=== PATIENT | female | born 1950 | race Caucasian/White ===

== ENCOUNTER 2017-05-20 22:37 | Emergency (ER) | payer BC ==
[~2017-05-20] VITALS: Ht 167.6 cm; Wt 115.9 kg
[~2017-05-20 22:37] MED LIST: ASPI81TA52 PO; ATEN50TA8 PO; ATOR20TA PO; CARI250T PO; CYCL10TA9; DULO-31 PO; DULO20CA50 PO; ENOX80SY7 SUBCUT; FURO40TA4 PO; LEVO75TA7 PO; METF500T7 PO; OXYC10TA86 PO; POTA20LI PO
[2017-05-20] MEDS ORDERED: aspirin 81mg tab.chew PO ONE (22:50)
[2017-05-20] MEDS ORDERED: nitroGLYCERIN 0.4mg SUBLingual tab SL PRN (22:50)
[2017-05-20 23:07] LABS: BASOPHILS # (AUTO) 0.1 X10'3 (0-0.2); BASOPHILS % (AUTO) 0.7 % (0-1); EOSINOPHILS # (AUTO) 0.7 X10'3 (0-0.9); EOSINOPHILS % (AUTO) 8.8 % (0-6); HEMATOCRIT 41.2 % (35.0-45.0); LYMPHOCYTES # (AUTO) 2.5 X10'3 (1.1-4.8); LYMPHOCYTES % (AUTO) 32.6 % (21-51); MEAN CORPUSCULAR HEMOGLOBIN 26.4 PG (27.0-31.0); MEAN CORPUSCULAR HGB CONC 31.6 % (33.0-36.5); MEAN CORPUSCULAR VOLUME 83.5 FL (78-98); MEAN PLATELET VOLUME 9.3 FL (7.4-10.4); MONOCYTES # (AUTO) 0.7 X10'3 (0-0.9); MONOCYTES % (AUTO) 9.5 % (2-12); NEUTROPHILS # (AUTO) 3.7 X10'3 (1.8-7.7); NEUTROPHILS % (AUTO) 48.4 % (42-75); PLATELET COUNT 249 X10'3 (140-440); RED BLOOD COUNT 4.93 X10'6 (4.20-5.60); RED CELL DISTRIBUTION WIDTH 15.8 % (11.5-14.5); WHITE BLOOD COUNT 7.6 X10'3 (4.5-11.0)
[2017-05-20 23:18] LABS: PARTIAL THROMBOPLASTIN TIME 27 SECONDS (22-32); PROTHROMBIN TIME 10.7 SECONDS (9.0-12.0)
[2017-05-20 23:28] LABS: ALANINE AMINOTRANSFERASE 29 U/L (12-78); ALBUMIN 3.7 G/DL (3.4-5.0); ALBUMIN/GLOBULIN RATIO 0.9 (1.1-1.5); ALKALINE PHOSPHATASE 70 IU/L (46-116); ANION GAP 8 (8-16); ASPARTATE AMINO TRANSFERASE 23 U/L (10-37); BILIRUBIN,TOTAL 0.5 MG/DL (0.1-1.0); BLOOD UREA NITROGEN 14 MG/DL (7-18); BUN/CREATININE RATIO 17.1 (6.6-38.0); CALCIUM 9.4 MG/DL (8.5-10.1); CHLORIDE 102 MMOL/L (99-107); CREATININE 0.82 MG/DL (0.40-0.90); GLUCOSE 102 MG/DL (70-104); MAGNESIUM 1.8 MG/DL (1.5-2.4); POTASSIUM 3.6 MMOL/L (3.5-5.1); SODIUM 141 MMOL/L (135-145); TOTAL CARBON DIOXIDE 30.7 MMOL/L (24-32); TOTAL PROTEIN 7.8 G/DL (6.4-8.2); eGFR 70 ML/MIN
[2017-05-20 23:54] LABS: D-DIMER 0.34 MG/L FEU (0-0.50)
[2017-05-21] MEDS ORDERED: acetaminophen 325mg tablet PO ONE (00:20)
[2017-05-21] MEDS ORDERED: ondansetron 4mg rapidly disintigrating tab PO ONE (00:20)
[2017-05-21 02:47] VITALS: BP 112/68
== END 2017-05-21 02:52 | disposition home or self-care (01) ==
LOC: ER 22:38
DX: R07.89 Other chest pain (principal); I48.91 Unspecified atrial fibrillation; E11.9 Type 2 diabetes mellitus without complications; Z98.890 Other specified postprocedural states; Z79.82 Long term (current) use of aspirin; Z79.899 Other long term (current) drug therapy
CPT/HCPCS: 36415; 71045; 80053; 83735; 83880; 84484; 85025; 85379; 85610; 85730; 93005; 99285

== ENCOUNTER 2018-07-06 05:11 | Inpatient (IN) | payer BC, MEDICARE | END 2018-07-10 15:01 | disposition home or self-care (01) | LOC: PAS IN 05:11 → ORTHO 4S 11:15 | DX: M17.11 Unilateral primary osteoarthritis, right knee (principal) ==

== ENCOUNTER 2018-10-19 08:31 | Inpatient (IN) | payer BC, MEDICARE ==
[2018-10-08 11:07] LABS: CLARITY,URINE CLOUDY (Clear); COLOR,URINE YELLOW (Yellow); GLUCOSE, URINE NEGATIVE (Neg); KETONES,URINE NEGATIVE (Neg); LEUKOCYTE ESTERASE ,URINE NEGATIVE (Neg); NITRITES, URINE NEGATIVE (Neg); OCCULT BLOOD,URINE NEGATIVE (Neg); PROTEIN,URINE NEGATIVE (Neg); UROBILINOGEN,URINE 0.2 E.U/dL (0.2-1.0)
[2018-10-08 11:11] LABS: UA COLLECTION TYPE CLN CATCH MIDSTREAM
[2018-10-08 11:12] LABS: BACTERIA,URINE FEW /HPF (Neg); RBC,URINE 0-2 /HPF (0-2); SQUAMOUS EPITHELIAL CELL,UR FEW /LPF (FEW); WBC,URINE 0-4 /HPF (0-4)
[2018-10-08 11:13] LABS: AMORPHOUS PHOSPHATES 2+
[2018-10-08 11:14] LABS: BASOPHILS % (AUTO) 0.8 % (0-1); EOSINOPHILS # (AUTO) 0.2 X10'3 (0-0.9); EOSINOPHILS % (AUTO) 3.3 % (0-6); LYMPHOCYTES # (AUTO) 1.7 X10'3 (1.1-4.8); MEAN CORPUSCULAR HEMOGLOBIN 25.6 PG (27.0-31.0); MEAN CORPUSCULAR HGB CONC 31.3 g/dL (33.0-36.5); MEAN CORPUSCULAR VOLUME 81.9 FL (78-98); MONOCYTES # (AUTO) 0.6 X10'3 (0-0.9); MONOCYTES % (AUTO) 10.1 % (2-12); NEUTROPHILS # (AUTO) 3.4 X10'3 (1.8-7.7); NEUTROPHILS % (AUTO) 57.8 % (42-75); PRE OP HEMATOCRIT 37.7 % (35.0-45.0); PRE OP HEMOGLOBIN 11.8 g/dL (12.0-16.0); PRE OP PLATELET COUNT 255 X10'3 (140-440); RED BLOOD COUNT 4.61 X10'6 (4.20-5.60); RED CELL DISTRIBUTION WIDTH 18.4 % (11.5-14.5)
[2018-10-08 11:20] LABS: HEMOGLOBIN A1C 6.1 % (4.5-6.2); PRE OP PROTIME 10.3 SECONDS (9.0-12.0)
[2018-10-08 11:30] LABS: ALBUMIN 3.7 G/DL (3.4-5.0); ALBUMIN/GLOBULIN RATIO 0.9 (1.1-1.5); ALKALINE PHOSPHATASE 84 IU/L (46-116); BLOOD UREA NITROGEN 13 MG/DL (7-18); CALCIUM 9.9 MG/DL (8.5-10.1); CHLORIDE 104 MMOL/L (99-107); CREATININE 0.62 MG/DL (0.40-0.90); PRE OP ALT 24 U/L (30-65); PRE OP ANION GAP 3 (8-16); PRE OP AST 14 U/L (10-37); PRE OP BILIRUB, TOTAL 0.3 MG/DL (0.0-1.0); PRE OP GLUCOSE 98 MG/DL (70-104); PRE OP POTASSIUM 4.1 MMOL/L (3.4-5.1); PRE OP SODIUM 142 MMOL/L (135-145); TOTAL CARBON DIOXIDE 34.7 MMOL/L (24-32); TOTAL PROTEIN 7.6 G/DL (6.4-8.2); eGFR > 90 ML/MIN
[~2018-10-19] VITALS: Ht 167.6 cm; Wt 102.5 kg
[2018-10-19] VITALS (20 sets, daily range): BP systolic 90–151; BP diastolic 50–80
[~2018-10-19 08:31] MED LIST changes: +ALBU8.5H8 IH; +APIX5TAB3 PO; +ASPI-611 PO; -ASPI81TA52 PO; -ATEN50TA8 PO; -ATOR20TA PO; +ATOR20TA66 PO; -CARI250T PO; +CYAN10006 IM; -CYCL10TA9; -DULO20CA50 PO; -ENOX80SY7 SUBCUT; +EXEN2AUT SQ; +EXEN2PEN; +METF500T20 PO; -METF500T7 PO; +MOME13HF INH; +MULT-969 PO; -OXYC10TA86 PO; -POTA20LI PO; +SOTA80TA73 PO; +VALS80TA2 PO; +VITA1TAB20 PO
[2018-10-19] MEDS ORDERED: gabapentin 300mg capsule PO ONE (08:45)
[2018-10-19] MEDS ORDERED: DOCUMENT DATE & TIME OF BETA-BLOCKER PO ONE (08:45)
[2018-10-19] MEDS ORDERED: albuterol 2.5 MG/3 ML nebule NEB ONE (08:45)
[2018-10-19] MEDS ORDERED: ringers solution, lacted 1,000 ML IV SCH ×2 (08:45→11:58)
[2018-10-19] MEDS ORDERED: vancomycin inj 1,500 MG in normal saline 300ml IV soln IV ONE (08:45)
[2018-10-19] MEDS ORDERED: oxyCODONE SR 10mg (sust. release) tab PO ONE (08:45)
[2018-10-19] MEDS ORDERED: famotidine 20mg tablet PO ONE (08:45)
[2018-10-19] MEDS ORDERED: cefazolin/dext.iso 2gm/100 ML IV ONE (08:45)
[2018-10-19] MEDS ORDERED: celeCOXIB 100mg capsule PO ONE (08:45)
[2018-10-19] MEDS ORDERED: tranexamic acid inj. 1,000 MG in normal saline 100 ML IV ONE (08:45)
[2018-10-19] MEDS ORDERED: acetaminophen 325mg tablet PO ONE (08:45)
[2018-10-19] MEDS ORDERED: glycopyrrolate 0.2mg/ml inj ONE (10:20)
[2018-10-19] MEDS ORDERED: ePHEDrine 50MG/ML INJ. ONE (10:20)
[2018-10-19] MEDS ORDERED: ondansetron/PF 4mg/2ml inj ONE (10:20)
[2018-10-19] MEDS ORDERED: neostigmine methylsulfate 1 MG/ML 10ml vial ONE (10:20)
[2018-10-19] MEDS ORDERED: sevoflurane 250ml liquid IH ONE (10:20)
[2018-10-19] MEDS ORDERED: dexamethasone sod phosphate 10mg/ml inj ONE (10:20)
[2018-10-19] MEDS ORDERED: fentaNYL/PF 50MCG/1 ML 2ML syringe ONE ×2 (10:26→11:06)
[2018-10-19] MEDS ORDERED: MIDAZolam 5mg/5ml vial ONE (10:27)
[2018-10-19] MEDS ORDERED: ROPIVAcaine 0.5% (5mg/ml) 30ml vial ONE (10:27)
[2018-10-19] MEDS ORDERED: proCHLORperazine 10 MG/2 ml inj IV PRN (12:00)
[2018-10-19] MEDS ORDERED: morphine 4 MG/ML inj SYRINge IV PRN ×2 (12:00)
[2018-10-19] MEDS ORDERED: ondansetron/PF 4mg/2ml inj IV PRN ×2 (12:00→13:00)
[2018-10-19] MEDS ORDERED: meperidine/PF 25mg/ml syringe IV PRN ×3 (12:00)
[2018-10-19] MEDS ORDERED: ceFAZolin 1000mg inj ONE (12:13)
[2018-10-19] MEDS ORDERED: propofol inj 20 ML IV ONE (12:13)
[2018-10-19] MEDS ORDERED: acetaminophen 1,000mg/100ml IV 100 ML IV ONE (12:13)
[2018-10-19] MEDS ORDERED: rocuronium 10mg/ml inj IV ONE (12:13)
[2018-10-19] MEDS ORDERED: LIDOcaine 2% (20mg/ml) 5ml vial ONE (12:13)
[2018-10-19] MEDS ORDERED: furosemide 40mg/4ml inj ONE (12:36)
[2018-10-19] MEDS ORDERED: non-formulary drug (Albuterol Sulfate (Proair Hfa) 2 PUFFS) IH PRN (12:55)
[2018-10-19] MEDS ORDERED: HYDROmorphone 1 mg/ml syringe IV PRN (13:00)
[2018-10-19] MEDS ORDERED: magnesium hydroxide 30ml (MOM) UD suspension PO PRN (13:00)
[2018-10-19] MEDS ORDERED: acetaminophen 325mg tablet PO PRN (13:00)
[2018-10-19] MEDS ORDERED: glucagon, human recombinant 1mg kit SUBCUT PRN (13:00)
[2018-10-19] MEDS ORDERED: dextrose 50%-water 50ml dispensing syringe IV PRN ×2 (13:00)
[2018-10-19] MEDS ORDERED: insulin Lispro (HumaLOG) vial - multi-dose SQ SCH (13:00)
[2018-10-19] MEDS ORDERED: dextrose ORAL solution 15 GM/59 ML bottle PO PRN ×2 (13:00)
[2018-10-19] MEDS ORDERED: diphenhydrAMINE 25mg capsule PO PRN ×2 (13:00)
[2018-10-19] MEDS ORDERED: MESSAGE TO PHARMACY PO ONE (13:00)
[2018-10-19] MEDS ORDERED: oxyCODONE/APAP 10/325mg tablet PO PRN (13:00)
[2018-10-19] MEDS ORDERED: bisacodyl 10mg suppository rectal RC PRN (13:00)
[2018-10-19] MEDS ORDERED: meperidine/PF 50mg/ml syringe ONE (13:05)
[2018-10-19] MEDS ORDERED: albuterol 2.5 MG/3 ML nebule NEB PRN (13:20)
--- NOTE | 2018-10-19 13:34 | NUR ---
ARRIVED IN PACU VIA BED FROM OR WITH DR DONOVAN IN ATTENDANCE. REPORT RECEIVED. VS STABLE. PT SLEEPY BUT AROUSES EASILY
--- NOTE | 2018-10-19 14:04 | NUR ---
PT IN A.FIB DR DONOVAN NOTIFIED. NO RX. VS STABLE
--- NOTE | 2018-10-19 14:34 | NUR ---
CONTINUES IN AFIB VS STABLE. STARTING TO C/O OF MILD PAIN.
--- NOTE | 2018-10-19 15:04 | NUR ---
COMFORTABLE. TO FLOOR ON TELE.
[2018-10-19] MEDS: metFORMIN 500mg tablet PO SCH (16:03)
[2018-10-19] MEDS: gabapentin 300mg capsule PO SCH ×2 (16:03→20:39)
[2018-10-19] MEDS: oxyCODONE/APAP 10/325mg tablet PO PRN ×2 (16:04→20:38)
[2018-10-19] MEDS: potassium cl 20mEq in 1/2 NS 1,000 ML IV SCH (16:05)
[2018-10-19] MEDS: ceFAZolin 1GM/D5W- ADD-VANTAGE 50 ML IV SCH (16:06)
--- NOTE | 2018-10-19 19:36 | NUR ---
non-admin the emar 0845 svn. dont know if patient actually received the treatment or not. i will start the Q6 svn orders at 2100
[2018-10-19] MEDS ORDERED: vancomycin/NS 1 GM ADD-VANTAGE 250 ML IV SCH (20:00)
[2018-10-19] MEDS: sotalol 80mg tablet PO SCH (20:00)
[2018-10-19] MEDS ORDERED: non-formulary drug (Mometasone/Formoterol (Dulera 200 Mcg/5 Mcg Inhaler) 2 PUFFS) INH SCH (20:00)
[2018-10-19] MEDS: ascorbic acid 500mg tablet PO SCH (20:39)
[2018-10-19] MEDS: sennosides 8.6mg tablet PO SCH (20:39)
[2018-10-19] MEDS: budesonide 0.5mg/2ml UD nebule IH SCH (20:52)
[2018-10-19] MEDS: albuterol 2.5 MG/3 ML nebule NEB SCH (20:52)
[2018-10-19] MEDS: insulin glargine (Lantus) pen - multi-dose SQ SCH (21:00)
[2018-10-20] MEDS: potassium cl 20mEq in 1/2 NS 1,000 ML IV SCH ×4 (00:57→20:57)
[2018-10-20] MEDS: ceFAZolin 1GM/D5W- ADD-VANTAGE 50 ML IV SCH (00:57)
[2018-10-20 02:00] VITALS: BP 110/51
[2018-10-20] MEDS: albuterol 2.5 MG/3 ML nebule NEB SCH ×4 (02:43→19:40)
--- NOTE | 2018-10-20 02:44 | NUR ---
pt refused 0300 svn for sleep
[2018-10-20] MEDS: oxyCODONE/APAP 10/325mg tablet PO PRN ×5 (04:38→21:07)
[2018-10-20 06:00] VITALS: BP 106/44
--- NOTE | 2018-10-20 06:07 | NUR ---
Problems reprioritized. Patient report given, questions answered & plan of care reviewed with JILLIAN CORTEZ.
--- NOTE | 2018-10-20 06:23 | NUR ---
Patient in room ORTHO 4017. I have received report from JILLIAN Hansen and had the opportunity to ask questions and assume patient care.
[2018-10-20 06:50] LABS: BASOPHILS % (AUTO) 0.3 % (0-1); EOSINOPHILS # (AUTO) 0.1 X10'3 (0-0.9); HEMATOCRIT 28.1 % (35.0-45.0); HEMOGLOBIN 8.8 g/dl (12.0-16.0); LYMPHOCYTES # (AUTO) 1.6 X10'3 (1.1-4.8); LYMPHOCYTES % (AUTO) 25.3 % (21-51); MEAN CORPUSCULAR HEMOGLOBIN 26.1 PG (27.0-31.0); MEAN CORPUSCULAR HGB CONC 31.4 g/dL (33.0-36.5); MEAN CORPUSCULAR VOLUME 83.1 FL (78-98); MEAN PLATELET VOLUME 9.1 FL (7.4-10.4); MONOCYTES # (AUTO) 0.7 X10'3 (0-0.9); MONOCYTES % (AUTO) 10.3 % (2-12); NEUTROPHILS % (AUTO) 62.1 % (42-75); PLATELET COUNT 207 X10'3 (140-440); RED BLOOD COUNT 3.39 X10'6 (4.20-5.60); RED CELL DISTRIBUTION WIDTH 19.3 % (11.5-14.5); WHITE BLOOD COUNT 6.4 X10'3 (4.5-11.0)
[2018-10-20 06:57] LABS: ANION GAP 5 (8-16); CHLORIDE 102 MMOL/L (99-107); POTASSIUM 4.4 MMOL/L (3.5-5.1); SODIUM 136 MMOL/L (135-145); TOTAL CARBON DIOXIDE 28.7 MMOL/L (24-32)
[2018-10-20] MEDS: atorvastatin 20mg tablet PO SCH (07:41)
[2018-10-20] MEDS: ascorbic acid 500mg tablet PO SCH ×2 (07:41→19:59)
[2018-10-20] MEDS: losartan 50mg tablet PO SCH (07:41)
[2018-10-20] MEDS: levoTHYROXINE 75mcg tablet PO SCH (07:41)
[2018-10-20] MEDS: duloxetine 30mg CAPSULE.DR PO SCH (07:41)
[2018-10-20] MEDS: furosemide 40mg tablet PO SCH (07:41)
[2018-10-20] MEDS: multivitamins, therapeutics tablet PO SCH (07:41)
[2018-10-20] MEDS: gabapentin 300mg capsule PO SCH ×3 (07:41→19:59)
[2018-10-20] MEDS: sotalol 80mg tablet PO SCH ×2 (07:41→19:58)
[2018-10-20] MEDS: metFORMIN 500mg tablet PO SCH ×3 (07:42→16:42)
[2018-10-20] MEDS ORDERED: non-formulary drug (Valsartan* (Diovan*) 1 TAB) PO SCH (08:00)
[2018-10-20] MEDS ORDERED: METFORMIN HCL 1500 MG PO SCH (08:00)
[2018-10-20] MEDS: budesonide 0.5mg/2ml UD nebule IH SCH ×2 (08:58→19:40)
[2018-10-20 10:00] VITALS: BP 112/56
[2018-10-20] MEDS ORDERED: warfarin 10mg tablet PO ONE (10:00)
[2018-10-20] MEDS ORDERED: HYDROmorphone inj. 0.5 MG/0.5 ML DISP.SYRIN IV PRN (10:45)
[2018-10-20 14:00] VITALS: BP 110/43
--- NOTE | 2018-10-20 14:05 | NUR ---
DM/Joint replacement consults: A1C <7 and not appropriate for ed at this time. Pt seen by RD for written/verbal high protein ed. RD reviewed high protein needs for wound healing, immune strength, high protein foods, and protein supplementation options. RD contact information provided in case of further questions. Pt hx michelle-en-y; RD encouraged pt to take bariatric MVI. Pt agrees to chocolate ensure high protein TIDWM; MD notified. Pt aware pending MD verification prior to sending w/ meals. Addendum: 10/20/18 at [address] Amended: Links added.
[2018-10-20 16:08] LABS: HYPOCHROMASIA 1+; PLATELET ESTIMATE NORMAL
[2018-10-20 16:09] LABS: ANISOCYTOSIS 2+; POLYCHROMASIA FEW
[2018-10-20 18:00] VITALS: BP 116/39
--- NOTE | 2018-10-20 18:30 | NUR ---
Patient in room ORTHO 4017. I have received report from JILLIAN CORTEZ and had the opportunity to ask questions and assume patient care.
[2018-10-20] MEDS: sennosides 8.6mg tablet PO SCH (19:58)
[2018-10-20] MEDS: insulin glargine (Lantus) pen - multi-dose SQ SCH (21:00)
[2018-10-20 22:00] VITALS: BP 113/65
[2018-10-21] MEDS: oxyCODONE/APAP 10/325mg tablet PO PRN ×5 (02:15→20:58)
[2018-10-21] MEDS: albuterol 2.5 MG/3 ML nebule NEB SCH ×4 (03:42→20:14)
[2018-10-21] MEDS: potassium cl 20mEq in 1/2 NS 1,000 ML IV SCH (04:49)
[2018-10-21 06:00] VITALS: BP 92/50
--- NOTE | 2018-10-21 06:06 | NUR ---
Problems reprioritized. Patient report given, questions answered & plan of care reviewed with JILLIAN VITALE.
--- NOTE | 2018-10-21 06:11 | NUR ---
received report from isela worthington
[2018-10-21] MEDS: furosemide 40mg tablet PO SCH (07:13)
[2018-10-21] MEDS: losartan 50mg tablet PO SCH (07:13)
[2018-10-21 07:16] LABS: BASOPHILS % (AUTO) 0.2 % (0-1); EOSINOPHILS # (AUTO) 0.2 X10'3 (0-0.9); EOSINOPHILS % (AUTO) 3.3 % (0-6); HEMATOCRIT 25.9 % (35.0-45.0); HEMOGLOBIN 8.3 g/dl (12.0-16.0); LYMPHOCYTES # (AUTO) 1.4 X10'3 (1.1-4.8); LYMPHOCYTES % (AUTO) 19.6 % (21-51); MEAN CORPUSCULAR HEMOGLOBIN 26.8 PG (27.0-31.0); MEAN CORPUSCULAR HGB CONC 32.1 g/dL (33.0-36.5); MEAN CORPUSCULAR VOLUME 83.4 FL (78-98); MONOCYTES # (AUTO) 0.7 X10'3 (0-0.9); MONOCYTES % (AUTO) 10.3 % (2-12); NEUTROPHILS # (AUTO) 4.9 X10'3 (1.8-7.7); NEUTROPHILS % (AUTO) 66.6 % (42-75); PLATELET COUNT 158 X10'3 (140-440); RED BLOOD COUNT 3.11 X10'6 (4.20-5.60); WHITE BLOOD COUNT 7.3 X10'3 (4.5-11.0)
[2018-10-21] MEDS: metFORMIN 500mg tablet PO SCH ×3 (07:22→17:05)
[2018-10-21] MEDS: duloxetine 30mg CAPSULE.DR PO SCH (07:22)
[2018-10-21] MEDS: sotalol 80mg tablet PO SCH ×2 (07:23→20:58)
[2018-10-21] MEDS: atorvastatin 20mg tablet PO SCH (07:24)
[2018-10-21] MEDS: levoTHYROXINE 75mcg tablet PO SCH (07:24)
[2018-10-21] MEDS: multivitamins, therapeutics tablet PO SCH (07:24)
[2018-10-21] MEDS: gabapentin 300mg capsule PO SCH ×3 (07:24→20:55)
[2018-10-21] MEDS: ascorbic acid 500mg tablet PO SCH ×2 (07:24→20:55)
[2018-10-21] MEDS: lactose-reduced food (Ensure High Protein) 237ml bottle PO SCH ×4 (08:00→18:00)
[2018-10-21 08:53] LABS: ANISOCYTOSIS 2+; HYPOCHROMASIA 2+; PLATELET ESTIMATE NORMAL; POLYCHROMASIA FEW
[2018-10-21 10:00] VITALS: BP 106/59
[2018-10-21] MEDS ORDERED: warfarin 3mg tablet PO ONE (10:00)
[2018-10-21] MEDS: budesonide 0.5mg/2ml UD nebule IH SCH ×2 (10:26→20:14)
[2018-10-21] MEDS ORDERED: acetaminophen 325mg tablet PO PRN (13:00)
--- NOTE | 2018-10-21 18:26 | NUR ---
GAVE REPORT TO JILLIAN AWAN
[2018-10-21] MEDS: sennosides 8.6mg tablet PO SCH (20:54)
[2018-10-21] MEDS: insulin glargine (Lantus) pen - multi-dose SQ SCH (21:00)
[2018-10-21 21:03] VITALS: BP 118/67
[2018-10-22] MEDS: albuterol 2.5 MG/3 ML nebule NEB SCH ×2 (02:52→08:23)
[2018-10-22] MEDS: oxyCODONE/APAP 10/325mg tablet PO PRN ×2 (04:49→10:25)
[2018-10-22 05:56] LABS: BASOPHILS % (AUTO) 0.3 % (0-1); EOSINOPHILS # (AUTO) 0.3 X10'3 (0-0.9); EOSINOPHILS % (AUTO) 4.3 % (0-6); HEMATOCRIT 27.5 % (35.0-45.0); HEMOGLOBIN 8.8 g/dl (12.0-16.0); LYMPHOCYTES # (AUTO) 1.9 X10'3 (1.1-4.8); MEAN CORPUSCULAR HEMOGLOBIN 26.5 PG (27.0-31.0); MEAN CORPUSCULAR HGB CONC 31.9 g/dL (33.0-36.5); MEAN PLATELET VOLUME 8.9 FL (7.4-10.4); MONOCYTES # (AUTO) 0.7 X10'3 (0-0.9); MONOCYTES % (AUTO) 9.7 % (2-12); NEUTROPHILS # (AUTO) 4.5 X10'3 (1.8-7.7); NEUTROPHILS % (AUTO) 60.7 % (42-75); PLATELET COUNT 205 X10'3 (140-440); RED BLOOD COUNT 3.31 X10'6 (4.20-5.60); RED CELL DISTRIBUTION WIDTH 19.3 % (11.5-14.5); WHITE BLOOD COUNT 7.5 X10'3 (4.5-11.0)
[2018-10-22 06:00] VITALS: BP 103/56
--- NOTE | 2018-10-22 06:05 | NUR ---
Patient in room ORTHO 4017. I have received report from Geeta and had the opportunity to ask questions and assume patient care.
--- NOTE | 2018-10-22 06:05 | NUR ---
Problems reprioritized. Patient report given, questions answered & plan of care reviewed with JILLIAN GUERRERO.
[2018-10-22] MEDS ORDERED: PER10325T PO (07:49)
[2018-10-22] MEDS: lactose-reduced food (Ensure High Protein) 237ml bottle PO SCH (08:00)
[2018-10-22] MEDS: metFORMIN 500mg tablet PO SCH (08:08)
[2018-10-22] MEDS: sotalol 80mg tablet PO SCH (08:08)
[2018-10-22] MEDS: losartan 50mg tablet PO SCH (08:09)
[2018-10-22] MEDS: atorvastatin 20mg tablet PO SCH (08:10)
[2018-10-22] MEDS: furosemide 40mg tablet PO SCH (08:10)
[2018-10-22] MEDS: duloxetine 30mg CAPSULE.DR PO SCH (08:10)
[2018-10-22] MEDS: gabapentin 300mg capsule PO SCH (08:11)
[2018-10-22] MEDS: multivitamins, therapeutics tablet PO SCH (08:11)
[2018-10-22] MEDS: levoTHYROXINE 75mcg tablet PO SCH (08:11)
[2018-10-22] MEDS: ascorbic acid 500mg tablet PO SCH (08:11)
[2018-10-22] MEDS: budesonide 0.5mg/2ml UD nebule IH SCH (08:23)
[2018-10-22 09:59] VITALS: BP 113/47
[2018-10-22] MEDS ORDERED: warfarin 7.5mg tablet PO ONE (10:00)
--- NOTE | 2018-10-22 10:11 | NUR ---
Called [facility], spoke with Shannan who took report.
[2018-10-22 10:54] LABS: ANISOCYTOSIS 2+; PLATELET ESTIMATE NORMAL; POLYCHROMASIA 1+
--- NOTE | 2018-10-22 10:56 | NUR ---
Pt was transported via [facility] personnel to [facility]. Pt is alert, oriented and in good spirits. Pt does not have any c/o pain or discomfort at this time. All of pt's belongings were returned to pt.
== END 2018-10-22 10:50 | DRG 470 ==
LOC: PAS IN 08:31 → EDSTATUS 10:45 → ORTHO 4S 15:15
PROVIDERS: ADMIT Specialist; ATTEND Specialist
PROC: 0MNP0ZZ Release Left Knee Bursa and Ligament, Open Approach (ICD-10-PCS; 2018-10-19)
PROC: 3E0T3BZ Introduction of Anesthetic Agent into Peripheral Nerves and Plexi, Percutaneous Approach (ICD-10-PCS; 2018-10-19)
PROC: 0SRD0J9 Replacement of Left Knee Joint with Synthetic Substitute, Cemented, Open Approach (ICD-10-PCS; principal; 2018-10-19 10:20)
DX: M17.12 Unilateral primary osteoarthritis, left knee (principal); D62 Acute posthemorrhagic anemia; E11.9 Type 2 diabetes mellitus without complications; I10 Essential (primary) hypertension; F32.9 Major depressive disorder, single episode, unspecified; G47.33 Obstructive sleep apnea (adult) (pediatric); E05.90 Thyrotoxicosis, unspecified without thyrotoxic crisis or storm; I48.2 Chronic atrial fibrillation; Z96.651 Presence of right artificial knee joint; J45.909 Unspecified asthma, uncomplicated; M21.162 Varus deformity, not elsewhere classified, left knee; Z79.01 Long term (current) use of anticoagulants; Z86.73 Personal history of transient ischemic attack (TIA), and cerebral infarction without residual deficits; Z98.84 Bariatric surgery status; Z79.899 Other long term (current) drug therapy; Z79.82 Long term (current) use of aspirin
CPT/HCPCS: Z7506; Z7508; 36415; 73560; 80051; 80053; 81001; 82948; 83036; 84443; 85025; 85610; 85730; 87081; 94640; 94760; 97110; 97116; 97162; 97530; A4215; A6258; A6449; A6454; A7000; C1713; C1758; C1776; G0378; J0131; J0690; J1100; J1170; J1815; J1940; J2001; J2175; J2250; J2405; J2704; J2710; J2795; J3010; J3370; J3480; J3490; J7030; J7120; J7626

== ENCOUNTER 2018-10-31 17:11 | Emergency (ER) | payer BC, MEDICARE ==
[~2018-10-31] VITALS: Ht 167.6 cm; Wt 104.5 kg
[~2018-10-31 17:11] MED LIST changes: -EXEN2PEN; +PER10325T PO
[2018-10-31 18:08] LABS: BASOPHILS # (AUTO) 0.1 X10'3 (0-0.2); EOSINOPHILS # (AUTO) 0.4 X10'3 (0-0.9); EOSINOPHILS % (AUTO) 4.2 % (0-6); HEMATOCRIT 26.7 % (35.0-45.0); HEMOGLOBIN 8.6 g/dl (12.0-16.0); LYMPHOCYTES # (AUTO) 2.6 X10'3 (1.1-4.8); LYMPHOCYTES % (AUTO) 28.4 % (21-51); MEAN CORPUSCULAR HEMOGLOBIN 26.9 PG (27.0-31.0); MEAN CORPUSCULAR VOLUME 84.2 FL (78-98); MEAN PLATELET VOLUME 8.6 FL (7.4-10.4); MONOCYTES # (AUTO) 0.9 X10'3 (0-0.9); MONOCYTES % (AUTO) 9.5 % (2-12); NEUTROPHILS # (AUTO) 5.3 X10'3 (1.8-7.7); NEUTROPHILS % (AUTO) 56.9 % (42-75); PLATELET COUNT 306 X10'3 (140-440); RED BLOOD COUNT 3.17 X10'6 (4.20-5.60); RED CELL DISTRIBUTION WIDTH 19.9 % (11.5-14.5); WHITE BLOOD COUNT 9.3 X10'3 (4.5-11.0)
[2018-10-31 18:21] LABS: PARTIAL THROMBOPLASTIN TIME 26 SECONDS (22-32)
[2018-10-31 18:26] LABS: D-DIMER 4.13 MG/L FEU (0-0.50)
[2018-10-31 18:27] LABS: ANISOCYTOSIS 2+; MICROCYTOSIS 1+; PLATELET ESTIMATE NORMAL; POIKILOCYTOSIS FEW; POLYCHROMASIA 1+; TARGET CELLS FEW
--- NOTE | 2018-10-31 18:31 | NUR ---
Pt reports knee pain is 0/10 and denies SOB.
[2018-10-31 18:32] LABS: ALANINE AMINOTRANSFERASE 12 U/L (12-78); ALBUMIN 2.8 G/DL (3.4-5.0); ALBUMIN/GLOBULIN RATIO 0.7 (1.1-1.5); ALKALINE PHOSPHATASE 77 IU/L (46-116); ANION GAP 6 (8-16); ASPARTATE AMINO TRANSFERASE 11 U/L (10-37); BILIRUBIN,TOTAL 0.5 MG/DL (0.1-1.0); BLOOD UREA NITROGEN 11 MG/DL (7-18); BUN/CREATININE RATIO 16.7 (6.6-38.0); CALCIUM 8.5 MG/DL (8.5-10.1); CHLORIDE 102 MMOL/L (99-107); CREATININE 0.66 MG/DL (0.40-0.90); GLUCOSE 95 MG/DL (70-104); MAGNESIUM 1.8 MG/DL (1.5-2.4); SODIUM 140 MMOL/L (135-145); TOTAL CARBON DIOXIDE 31.6 MMOL/L (24-32); TOTAL PROTEIN 6.7 G/DL (6.4-8.2); eGFR 90 ML/MIN
[2018-10-31] MEDS ORDERED: iohexol 350MG/ML 100ml bottle IV ONE (18:54)
[2018-10-31] MEDS: MESSAGE TO NURSING PO NR ×2 (19:15→20:50)
[2018-10-31] MEDS ORDERED: potassium Cl 20 mEq SR tablet PO STA (20:44)
[2018-10-31 20:51] VITALS: BP 118/53
== END 2018-10-31 22:15 | disposition home or self-care (01) ==
LOC: ER 17:11
DX: R07.89 Other chest pain (principal); R06.02 Shortness of breath; R06.00 Dyspnea, unspecified; I10 Essential (primary) hypertension; J45.909 Unspecified asthma, uncomplicated; I48.91 Unspecified atrial fibrillation; E11.9 Type 2 diabetes mellitus without complications; Z98.890 Other specified postprocedural states; Z91.09 Other allergy status, other than to drugs and biological substances; Z79.82 Long term (current) use of aspirin; Z79.84 Long term (current) use of oral hypoglycemic drugs; Z79.899 Other long term (current) drug therapy
CPT/HCPCS: 36415; 71045; 71275; 80053; 83735; 83880; 85025; 85379; 85610; 85730; 93005; 99284; Q9967

== ENCOUNTER 2019-09-15 17:01 | Emergency (ER) | payer BC, MEDICARE ==
[~2019-09-15] VITALS: Ht 167.6 cm; Wt 109.0 kg
[~2019-09-15 17:01] MED LIST changes: +METF-900 PO; -METF500T20 PO
[2019-09-15] MEDS ORDERED: aspirin 325mg tablet PO ONE (18:10)
[2019-09-15] MEDS ORDERED: magnesium 2GM in 50ml NS 50 ML IV ONE (18:15)
[2019-09-15] MEDS ORDERED: normal saline 1000ml 1,000 ML IV ONE (18:15)
[2019-09-15 18:29] LABS: ALANINE AMINOTRANSFERASE 18 U/L (12-78); ALBUMIN 3.9 G/DL (3.4-5.0); ALKALINE PHOSPHATASE 81 IU/L (46-116); ANION GAP 7 (8-16); ASPARTATE AMINO TRANSFERASE 16 U/L (10-37); BILIRUBIN,TOTAL 0.5 MG/DL (0.1-1.0); BLOOD UREA NITROGEN 13 MG/DL (7-18); BUN/CREATININE RATIO 15.5 (6.6-38.0); CALCIUM 9.4 MG/DL (8.5-10.1); CHLORIDE 106 MMOL/L (99-107); CREATININE 0.84 MG/DL (0.40-0.90); GLUCOSE 104 MG/DL (70-104); HEMATOCRIT 36.3 % (35.0-45.0); HEMOGLOBIN 11.5 g/dl (12.0-16.0); MEAN CORPUSCULAR HEMOGLOBIN 24.8 PG (27.0-31.0); MEAN CORPUSCULAR HGB CONC 31.7 g/dL (33.0-36.5); MEAN CORPUSCULAR VOLUME 78.2 FL (78-98); MEAN PLATELET VOLUME 8.9 FL (7.4-10.4); PLATELET COUNT 261 X10'3 (140-440); POTASSIUM 3.8 MMOL/L (3.5-5.1); RED BLOOD COUNT 4.65 X10'6 (4.20-5.60); RED CELL DISTRIBUTION WIDTH 18.3 % (11.5-14.5); SODIUM 143 MMOL/L (135-145); TOTAL PROTEIN 7.9 G/DL (6.4-8.2); WHITE BLOOD COUNT 6.2 X10'3 (4.5-11.0); eGFR 68 ML/MIN
[2019-09-15 18:34] LABS: EOSINOPHILS % (AUTO) 2.2 % (0-6); LYMPHOCYTES % (AUTO) 35.9 % (21-51); MONOCYTES % (AUTO) 7.9 % (2-12); NEUTROPHILS # (AUTO) 3.3 X10'3 (1.8-7.7)
[2019-09-15 18:35] LABS: EOSINOPHILS # (AUTO) 0.1 X10'3 (0-0.9); LYMPHOCYTES # (AUTO) 2.2 X10'3 (1.1-4.8); MONOCYTES # (AUTO) 0.5 X10'3 (0-0.9)
[2019-09-15 18:36] LABS: BASOPHILS # (AUTO) 0.1 X10'3 (0-0.2)
[2019-09-15 18:48] LABS: ANISOCYTOSIS 2+; ELLIPTOCYTES 1+; HYPOCHROMASIA 1+; MICROCYTOSIS 1+; PLATELET ESTIMATE NORMAL; STOMATOCYTES 1+
--- NOTE | 2019-09-15 19:16 | NUR ---
PT BARED DOWN 5 TIMES WITH LEGS ELEVATED.
[2019-09-15] MEDS ORDERED: fentaNYL/PF 50MCG/1 ML 2ML syringe IV ONE (19:40)
[2019-09-15] MEDS ORDERED: propofol 10mg/ml 20ml vial IV ONE (19:40)
[2019-09-15] MEDS ORDERED: metoprolol succinate 25mg (24-HOUR) SR. Tablet PO ONE (20:25)
--- NOTE | 2019-09-15 20:40 | NUR ---
CONTACTED [facility] [phone] FOR TRANPORTATION HOME
--- NOTE | 2019-09-15 20:50 | NUR ---
DIPRIVAN 140MG WASTED IN OMNICELL WITH CATALINA WALSH WITNESS
[2019-09-15 20:51] VITALS: BP 133/69
== END 2019-09-15 21:00 | disposition home or self-care (01) ==
LOC: ER 17:02
DX: I48.91 Unspecified atrial fibrillation (principal); R51 Headache; E11.9 Type 2 diabetes mellitus without complications; Z86.73 Personal history of transient ischemic attack (TIA), and cerebral infarction without residual deficits; Z98.890 Other specified postprocedural states; Z79.01 Long term (current) use of anticoagulants; Z79.82 Long term (current) use of aspirin; Z79.899 Other long term (current) drug therapy
CPT/HCPCS: 36415; 71045; 80053; 84484; 85025; 92960; 93005; 96365; 96375; 99285; J2704; J3010; J3475; J7030; 94760

== ENCOUNTER 2020-05-28 19:47 | Emergency (ER) | payer BC, MEDICARE ==
[~2020-05-28] VITALS: Ht 167.6 cm; Wt 113.3 kg
[2020-05-28 19:53] VITALS: BP 163/100
[2020-05-28 20:19] LABS: BASOPHILS # (AUTO) 0.1 X10'3 (0-0.2); EOSINOPHILS # (AUTO) 0.2 X10'3 (0-0.9); EOSINOPHILS % (AUTO) 2.4 % (0-6); HEMOGLOBIN 9.9 g/dl (12.0-16.0); LYMPHOCYTES # (AUTO) 2.4 X10'3 (1.1-4.8); LYMPHOCYTES % (AUTO) 39.9 % (21-51); MEAN PLATELET VOLUME 8.4 FL (7.4-10.4); MONOCYTES # (AUTO) 0.5 X10'3 (0-0.9); MONOCYTES % (AUTO) 7.5 % (2-12); NEUTROPHILS % (AUTO) 49.2 % (42-75); PLATELET COUNT 271 X10'3 (140-440); WHITE BLOOD COUNT 6.1 X10'3 (4.5-11.0)
[2020-05-28 20:31] LABS: ALANINE AMINOTRANSFERASE 16 U/L (12-78); ALBUMIN 3.5 G/DL (3.4-5.0); ALBUMIN/GLOBULIN RATIO 0.9 (1.1-1.5); ALKALINE PHOSPHATASE 75 IU/L (46-116); ANION GAP 8 (8-16); ASPARTATE AMINO TRANSFERASE 11 U/L (10-37); BILIRUBIN,TOTAL 0.2 MG/DL (0.1-1.0); BLOOD UREA NITROGEN 13 MG/DL (7-18); BUN/CREATININE RATIO 15.3 (6.6-38.0); CALCIUM 9.2 MG/DL (8.5-10.1); CHLORIDE 101 MMOL/L (99-107); CREATININE 0.85 MG/DL (0.40-0.90); GLUCOSE 137 MG/DL (70-104); POTASSIUM 3.6 MMOL/L (3.5-5.1); SODIUM 139 MMOL/L (135-145); TOTAL CARBON DIOXIDE 29.7 MMOL/L (24-32); TOTAL PROTEIN 7.2 G/DL (6.4-8.2); eGFR 67 ML/MIN
[2020-05-28 20:59] LABS: HEMATOCRIT 31.8 % (35.0-45.0); MEAN CORPUSCULAR HEMOGLOBIN 22.5 PG (27.0-31.0); MEAN CORPUSCULAR VOLUME 72.7 FL (78-98); RED BLOOD COUNT 4.37 X10'6 (4.20-5.60); RED CELL DISTRIBUTION WIDTH 18.5 % (11.5-14.5)
== END 2020-05-28 22:13 | disposition home or self-care (01) ==
LOC: ER 19:48
DX: R06.02 Shortness of breath (principal); I48.91 Unspecified atrial fibrillation; E11.9 Type 2 diabetes mellitus without complications; Z79.01 Long term (current) use of anticoagulants; Z98.890 Other specified postprocedural states; Z86.73 Personal history of transient ischemic attack (TIA), and cerebral infarction without residual deficits; Z91.048 Other nonmedicinal substance allergy status; Z79.82 Long term (current) use of aspirin; Z79.899 Other long term (current) drug therapy
CPT/HCPCS: 71045; 80053; 83880; 84484; 85025; 93005; 99285

== ENCOUNTER 2021-06-17 22:26 | Emergency (ER) | payer MEDICARE ==
[~2021-06-17] VITALS: Ht 167.6 cm; Wt 113.6 kg
[~2021-06-17 22:26] MED LIST changes: +ALBU8.5H17 IH; -ALBU8.5H8 IH
[2021-06-17] MEDS ORDERED: acetaminophen 325mg tablet PO ONE (23:05)
[2021-06-17 23:48] VITALS: BP 116/81
== END 2021-06-17 23:51 | disposition home or self-care (01) ==
LOC: ER 22:27
DX: R51.9 Headache, unspecified (principal); I48.91 Unspecified atrial fibrillation; E11.9 Type 2 diabetes mellitus without complications; Z86.73 Personal history of transient ischemic attack (TIA), and cerebral infarction without residual deficits; Z79.82 Long term (current) use of aspirin; Z79.899 Other long term (current) drug therapy; Z91.048 Other nonmedicinal substance allergy status; W19.XXXA Unspecified fall, initial encounter; Y93.01 Activity, walking, marching and hiking; Y92.89 Other specified places as the place of occurrence of the external cause; Y99.8 Other external cause status
CPT/HCPCS: 70450; 72125; 99284; 99285

== ENCOUNTER 2024-06-24 10:20 | Outpatient (CLI) | payer MEDICARE, OTHER ==
[~2024-06-24 10:20] MED LIST changes: -MOME13HF INH; +MOME13HF11 INH; +VITA-290 PO; -VITA1TAB20 PO
[2024-06-24 10:58] LABS: ALBUMIN 3.5 G/DL (3.4-5.0); ANION GAP 4 (8-16); BLOOD UREA NITROGEN 13 MG/DL (7-18); BUN/CREATININE RATIO 18.1 (10.0-20.0); CALCIUM 9.2 MG/DL (8.5-10.1); CHLORIDE 100 MMOL/L (99-107); CREATININE 0.72 MG/DL (0.40-0.90); GLUCOSE 148 MG/DL (70-104); POTASSIUM 3.7 MMOL/L (3.5-5.1); SODIUM 139 MMOL/L (135-145); TOTAL CARBON DIOXIDE 35.1 MMOL/L (24-32); eGFR 80 ML/MIN
[2024-06-24] MEDS ORDERED: iohexol 350MG/ML 100ml bottle IV ONE (20:14)
== END 2024-06-24 23:59 | disposition home or self-care (01) ==
LOC: RAD 10:20
PROVIDERS: ATTEND Physician Assistant Medical
DX: I71.02 Dissection of abdominal aorta (principal); R79.9 Abnormal finding of blood chemistry, unspecified
CPT/HCPCS: 36415; 71275; 80048; Q9967

== ENCOUNTER 2024-10-06 09:12 | Inpatient (IN) | payer OTHER, MEDICARE ==
[~2024-10-06] VITALS: Ht 167.6 cm; Wt 114.1 kg
[~2024-10-06 09:12] MED LIST changes: -ALBU8.5H17 IH; -APIX5TAB3 PO; -ASPI-611 PO; -ATOR20TA66 PO; -CYAN10006 IM; +CYAN10007 IM; -DULO-31 PO; +DULO30CA52 PO; -EXEN2AUT SQ; -FURO40TA4 PO; -MOME13HF11 INH; -MULT-969 PO; +PANT40TA54 PO; -PER10325T PO; +ROSU20TA98 PO; -SOTA80TA73 PO; +TERB250T89 PO; -VITA-290 PO
--- NOTE | 2024-10-06 09:30 | Physician Documentation ---
History of Present Illness Chief Complaint: Abdominal Pain Stated Complaint: ABD PAIN Primary Medical Doctor: Johana Juares Patient with a history of diabetes in with worsening right lower quadrant and right low back pain. Today is Friday and she was admitted last and discharged home on Friday for an intra-abdominal bleed. She states she was monitored with CT scan and blood work. History of AFib on warfarin and the warfarin was stopped. She had an ablation a couple of months ago and has not had AFib. No blood in her stool though she reports a seemed darker brown. No difficulty urinating. She had come in initially with right lower quadrant pain and they found some bleeding in the abdomen on CT. She states she felt better and the pain is returning again and she was told to come back if it returns. Also has returning over that right low back pain. Pain is moderate and worse with movement. No chest pain or shortness of breath. Medication Reconciliation Allergies: Coded Allergies: No Known Drug Allergies (Verified Allergy, Unknown, 10/06/24) adhesive tape (Verified Adverse Reaction, Mild, REDNESS/IRRITATION, 10/06/24) Scheduled Cyanocobalamin (Vitamin B-12) (Cyanocobalamin Injection), 1 ML IM Q30D, (Reported) Duloxetine HCl (Duloxetine HCl), 3 CAP PO DAILY, (Reported) Levothyroxine Sodium (Levothyroxine Sodium), 1 TABLET PO DAILY, (Reported) Metformin Hcl* (Metformin ER*), 500 MG PO BID, (Reported) Pantoprazole Sodium (Pantoprazole Sodium), 40 MG PO BKF Rosuvastatin Calcium (Rosuvastatin Calcium), 1 TAB PO HS, (Reported) Terbinafine Hcl (Terbinafine Hcl), 1 TAB PO DAILY, (Reported) Valsartan* (Diovan*), 1 TAB PO DAILY, (Reported) Discontinued Medications Albuterol Sulfate (Proair Hfa), 2 PUFFS IH Q4H PRN for SOB or wheezing, (Reported) Discontinued Reason: patient no longer taking Apixaban (Eliquis), 1 TAB PO Q12H, (Reported) Discontinued Reason: patient no longer taking Ascorbic Acid (Ascorbic Acid), 1 TAB PO DAILY, (Reported) Discontinued Reason: patient no longer taking Aspirin (Aspir 81), 1 TAB PO DAILY, (Reported) Discontinued Reason: patient no longer taking Atorvastatin Calcium (Atorvastatin Calcium), 1 TAB PO DAILY, (Reported) Discontinued Reason: patient no longer taking Cyanocobalamin (Vitamin B-12) (Cyanocobalamin Injection), 1 ML IM Q30D, (R eported) Discontinued Reason: patient no longer taking Duloxetine Hcl* (Cymbalta*), 90 MG PO DAILY, (Reported) Discontinued Reason: patient no longer taking Exenatide Microspheres (Bydureon Bcise), 2 MG SQ Q7D, (Reported) Discontinued Reason: patient no longer taking Furosemide 40 MG (Lasix), 1 TAB PO DAILY, (Reported) Discontinued Reason: patient no longer taking Mometasone/Formoterol (Dulera 200 Mcg/5 Mcg Inhaler), 2 PUFFS INH Q12H, (Reported) Discontinued Reason: patient no longer taking Multivits W-Fe,Other Min/Lut (Multivitamin, Women's), 1 EACH PO DAILY, (Reported) Discontinued Reason: patient no longer taking Oxycodone Hcl/Acetaminophen 10/325 MG* (Percocet 10/325 MG*), 1 TAB PO Q4H PRN for moderate or severe pain Discontinued Reason: patient no longer taking Oxycodone Hcl/Acetaminophen 10/325 MG* (Percocet 10/325 MG*), 2 TAB PO Q4H PRN for moderate or severe pain Discontinued Reason: patient no longer taking Sotalol Hcl* (Betapace*), 40 MG PO BID, (Reported) Discontinued Reason: patient no longer taking Vitamin B Complex (Vitamin B Complex), 1 EACH PO DAILY, (Reported) Discontinued Reason: patient no longer taking Warfarin Sodium (Warfarin Sodium), 10 MG PO ,,,,,SA, (Reported) Discontinued Reason: patient no longer taking Warfarin Sodium (Warfarin Sodium), 1 TAB PO FRIDAY, (Reported) Discontinued Reason: Prescription changed Warfarin Sodium (Warfarin Sodium), 1 TAB PO MONDAYS, (Reported) Discontinued Reason: patient no longer taking Past Medical History Past Medical History: CVA/TIA/Stroke, Atrial Fibrillation, Diabetes Past Surgical History: orthopedic surgeries Alcohol Use: None Drug Use: none Lives with: Family Lives In: Home Occupation: employed Review of Systems All Other Systems at this time: Reviewed and Negative Physical Exam Vital Signs: Temperature: 97.6, Source: Temporal, Heart Rate: 80, Respiratory Rate: 16, BP: 113/77, Pulse Oximetry: 97, Weight: 114.090 Oxygen Flow Rate: 0 General Appearance: alert, WD/WN Neck: normal inspection, full range of motion Respiratory: lungs clear, normal breath sounds, no respiratory distress Chest: no accessory muscle use Cardiovascular: regular rate, rhythm, no edema, no murmur Gastrointestinal: normal palpation, other (Tender in the right lower quadrant) Back: normal inspection, no CVA tenderness Extremities: normal range of motion, no edema Neurologic: oriented x4, memory intact Psychiatric: normal mood/affect Skin: normal color, warm/dry Progress Progress Note Patient in with worsening right lower quadrant pain. CT shows continue possible blood in though improved. Patient is stable. Can not rule out cholecystitis so added ultrasound and direct bilirubin for further evaluation of choledocholithiasis. Normal urine. No fever. Discussed with hospitalist team and they will admit for further evaluation and treatment. Stable on admission. Results/Orders Results/Orders Vital Signs 10/06/24 09:21 Temp 97.6 Pulse 80 Resp 16 B/P (MAP) 113/77 Pulse Ox 97 O2 Flow Rate 0 EKG/XRAY/CT/US/VASC/MRI EKG : EKG Rate: 70 EKG: a flutter, no ST T wave changes Medical Decision Making Additional Comments Differential includes but isn't limited to: Intra-abdominal bleed, urinary tract infection, pyelonephritis, nephrolithiasis, appendicitis, colitis, cholelithiasis, cholecystitis Departure Disposition: ADMITTED INPATIENT Admitted to Inpatient Unit: yes, to hospitalist Admission Level of Care: Med/Surg Impression: Primary Impression: Abdominal pain Qualified Codes: R10.31 - Right lower quadrant pain Condition: Stable Referrals: NO PRIMARY CARE PROVIDER (PCP) Signature Scribe Signature: No scribe used Attestation: No scribe used REECE MILES Oct 06, 2024 09:30 BISHOP KIDD MD Oct 06, 2024 10:48
[2024-10-06 09:58] LABS: MEAN PLATELET VOLUME 8.8 FL (7.4-10.4); RED CELL DISTRIBUTION WIDTH 13.1 % (11.5-14.5)
--- NOTE | 2024-10-06 10:06 | ELECTROCARDIOGRAPH REPORT ---
[facility] Test Date: 2024-10-06 Test Time: 10:04:52 Pat Name: REJI DODSON Department: [facility]- Patient ID: [facility]-[id number] Room: ORTHO [facility] Gender: F Regional Production Manager: : 1950 Requested By: BISHOP KIDD Order Number: [id number] Reading MD: Dr. Trevor Beasley Measurements Intervals [place] Rate: 70 P: 0 ME: 0 QRS: -57 QRSD: 137 T: 49 QT: 431 QTc: 466 Interpretive Statements Atrial flutter with predominant 4:1 AV block RBBB and LAFB Probable left ventricular hypertrophy Baseline wander in lead(s) V3 Electronically Signed On 10-08-2024 19:27:[address] Trevor Beasley Please click the below link to view image of tracing.
[2024-10-06 10:07] LABS: CREATININE 0.61 MG/DL (0.40-0.90); TOTAL CARBON DIOXIDE 29.3 MMOL/L (24-32); eCRCL 79 ML/MIN; eGFR > 90 ML/MIN
[2024-10-06 10:09] LABS: INR 1.0 INR
[2024-10-06 10:14] LABS: LEUKOCYTE ESTERASE ,URINE NEGATIVE (Neg); NITRITES, URINE NEGATIVE (Neg); OCCULT BLOOD,URINE NEGATIVE (Neg); UA COLLECTION TYPE URINAL
[2024-10-06 10:22] LABS: SQUAMOUS EPITHELIAL CELL,UR FEW /LPF (FEW)
[2024-10-06 10:23] LABS: MUCUS STRANDS FEW /LPF (Neg)
[2024-10-06] MEDS ORDERED: iohexol 300mg/ml 100ml inj. ONE (11:04)
--- NOTE | 2024-10-06 12:22 | RADIOLOGY REPORT ---
EXAM: CT CT ABDOMEN PELVIS W/ IV CONTRAST HISTORY: RLQ pain, diabetes mellitus, history of gastric bypass COMPARISON: US ULTRASOUND OF ABDOMEN on DOS: 10/01/24, CT CT ABDOMEN PELVIS W/ IV CONTRAST on DOS: 09/08 08/01, CT CT ABDOMEN PELVIS W/ IV CONTRAST on DOS: 09/30/24 TECHNIQUE: Helical CT images of the abdomen and pelvis were performed with 100 mL omnipaque 350 IV c ontrast. Sagittal and coronal reformatted images were obtained. This CT exam was performed using 1 or more of the following dose reduction techniques: Automated exposure control, adjustment of the mA an d/or kv according to patient size, or the use of iterative reconstruction techniques. Radiation Dose Information: CT Dose: CTDI volume is 35.83 mGy. Dose-length product is 1865.15 mGy*cm FINDINGS: CT abdomen: There is elevation of the right hemidiaphragm with scarring and/or atelectasis in the rig ht lung base. The heart is borderline enlarged. Tiny gallstones are identified in the dependent porti on of the gallbladder. The gallbladder is distended up to 5.5 cm width, consistent with hydrops. Th ere are postoperative changes of gastric bypass. The liver measures 20 cm longitudinal. The spleen, p ancreas, kidneys, and adrenal glands are unremarkable. No abdominal aortic aneurysm or dissection. CT pelvis: No abnormal bowel dilatation or free air. There is fluid in the pelvis and right pericolic gutter with increased density suggestive of blood products, with volume slightly decreased compared with CT scan performed 5 days earlier. There are diverticula throughout the colon. The appendix is no t dilated (images 70 7-82, series 2). The urinary bladder is unremarkable. Margins of the uterus and adnexa are not well defined secondary to dense fluid. There is advanced lumbar degenerative disc dis ease and facet arthropathy with multilevel significant neural foraminal stenosis and at least mild sp inal canal stenosis at multiple levels. IMPRESSION: 1.Cholelithiasis with gallbladder hydrops which can be seen with acute cholecystitis. 2.Hepatomegaly. 3.Pancolonic diverticulosis without definite evidence of acute diverticulitis. 4.Dense fluid in the lower abdomen and pelvis suggestive hemorrhagic ascites, with volume slightly i mproved compared with CT scan of the abdomen and pelvis dated 10/01/2024. It is uncertain if this may arise from the uterus, adnexae, or cecum. Surgical and/or gynecologic consultation may be warranted. 5.Advanced lumbar degenerative disc disease and facet arthropathy with multilevel significant neural foraminal stenosis. This should be further evaluated with noncontrast MRI on an outpatient basis on ce the patient's acute condition has resolved. 6.No evidence of bowel obstruction, acute appendicitis, or other acute process in the abdomen or pel vis.
[2024-10-06] MEDS ORDERED: magnesium Cl slow-release 64mg tablet PO PRN (13:00)
[2024-10-06] MEDS ORDERED: ondansetron/PF 4mg/2ml inj IV PRN (13:00)
[2024-10-06] MEDS ORDERED: potassium Cl 40MEQ/1/2NS 520ml 520 ML IV PRN (13:00)
[2024-10-06] MEDS ORDERED: magnesium sulf-water 2g/50mL 50 ML IV PRN (13:00)
[2024-10-06] MEDS ORDERED: potassium Cl 20 mEq SR tablet PO PRN (13:00)
[2024-10-06] MEDS ORDERED: magnesium sulf-water 4G/100mL 100 ML IV PRN (13:00)
[2024-10-06] MEDS: normal saline 1000ml 1,000 ML IV SCH (13:28)
[2024-10-06] MEDS: potassium Cl 20 mEq SR tablet PO PRN (13:28)
[2024-10-06] MEDS ORDERED: FURO-150 PO (13:34)
[2024-10-06] MEDS ORDERED: TYL650S RC (13:35)
[2024-10-06] MEDS ORDERED: WARF-55 PO (13:35)
[2024-10-06] MEDS: CefTRIAXone/D5W-Rocephin 1gm 50 ML IV SCH (14:02)
[2024-10-06 14:22] LABS: CREATININE 0.61 MG/DL (0.40-0.90); TOTAL CARBON DIOXIDE 29.6 MMOL/L (24-32); eCRCL 79 ML/MIN; eGFR > 90 ML/MIN
[2024-10-06 15:22] VITALS: BP 133/44; PULSE 80; RESP 17; TEMP 98.4; O2SAT 97
--- NOTE | 2024-10-06 15:23 | HISTORY AND PHYSICAL-Residence ---
History & Physical Providers to CC Resident Creating Document: SOY RIOS RES ~ History of Present Illness Primary Medical Doctor: Johana Juares Reason for Admit\Complaint: Abdominal pain History of Present Illness 73 years old female with history of AFib, diabetes mellitus type 2, presented to the ED due to right upper quadrant pain. Patient was admitted in our hospital last week with diagnosis of spontaneous intra-abdominal bleeding following to supra therapeutic INR secondary to warfarin use. Patient managed nonsurgically and received vitamin K and FFP. She discharged home with a stable situation. Patient reported after discharge she continued to have mild abdominal pain, however last night the pain woke her up. Pain is on her right upper quadrant, severity of the pain nine of the 10, nonradiating, sharp when she was moving. Pain is alleviated when she does not move. She reported one time vomiting last night and also had some associated nausea. Denied fever or chills changing in bowel habits. Allergies: Coded Allergies: No Known Drug Allergies (Verified Allergy, Unknown, 10/06/24) adhesive tape (Verified Adverse Reaction, Mild, REDNESS/IRRITATION, 10/06/24) Home Medications Home Medications Active Pantoprazole Sodium 40 Mg Tablet.dr 40 Mg PO BKF 30 Days Reported Tylenol (Acetaminophen) 650 Mg Supp.rect 1 Supp RC Q6H PRN PRN 1 Days Warfarin Sodium 5 Mg Tablet 1 Tab PO DAILY 30 Days Lasix* (Furosemide) 20 Mg Tablet 1 Tab PO DAILY 30 Days Cyanocobalamin Injection (Cyanocobalamin (Vitamin B-12)) 1,000 Mcg/Ml Vial 1 Ml IM Q30D 30 Days Rosuvastatin Calcium 20 Mg Tablet 1 Tab PO HS Duloxetine HCl 30 Mg Capsule. 3 Cap PO DAILY Terbinafine Hcl 250 Mg Tablet 1 Tab PO DAILY Diovan* (Valsartan) 80 Mg Tablet 1 Tab PO DAILY Levothyroxine Sodium 75 Mcg Tablet 1 Tablet PO DAILY Metformin ER* (Metformin HCl) 500 Mg Tab.sr.24h 500 Mg PO BID Past Medical History Past Medical History Intra-abdominal bleeding following Cipro therapeutic INR secondary to warfarin use on 09/30/24 Hypothyroidism Atrial fibrillation History of CVA Diabetes mellitus type 2 Hypertension KATIE Asthma Past Surgical History Surgical History Comment Gastric bypass 2020 Bilateral total knee arthroplasty Neck and back surgery Past Social History Smoking: Non-Smoker Alcohol Use: None Drug Use: None Lives with: Family Lives In: Home Occupation: employed ROS ROS The history of present illness included a review of system, which yielded relevant positives and negatives Exam Vitals: Vital Signs Date Time Temp Pulse Resp B/P (MAP) Pulse Ox O2 Delivery O2 Flow Rate FiO2 10/06/24 15:04 74 15 149/83 (105) 98 10/06/24 14:04 97.6 0 General: General: Awake and Alert, no acute distress. HEENT: Conjunctiva pink, Sclera clear, Mucus Membranes moist. Neck: Supple without masses and tenderness. Resp: Lungs clear to auscultation bilaterally. Heart: Regular Rate and rhythm, normal S1 and S2 Abdomen: Soft, nondistended, tenderness on right upper quadrant, positive Mcpherson sign Extremities: No cyanosis,clubbing or edema. Skin: Warm and Dry. Neurological: Speech is clear, alert, and oriented x 4, no gross neurological deficits Diagnostic Data Last Recorded Lab Results: 10/06/24 0948 10/06/24 1342 Diagnostic Data: Laboratory Tests Test 10/06/24 09:48 Prothrombin Time 10.5 SECONDS (9.0-12.0) INR International Normalized Ratio 1.0 INR Coagulation Comments Advance Care Planning Advanced Care plannin - 30 Minutes Additional Plan 73 years old female with history of diabetes mellitus, hypertension, AFib presented to the ED with abdominal pain Right upper quadrant abdominal pain Chronic Intra-abdominal hemorrhage subsequent hepatic flexure hematoma suspected acute cholecystitis on 09/30/24, Patient was admitted in our hospital last week with diagnosis of spontaneous intra-abdominal bleeding following to supra therapeutic INR secondary to warfarin use. Patient managed nonsurgically and received vitamin K and FFP. She discharged home with a stable situation. CT: 1. Cholelithiasis with gallbladder hydrops which can be seen with acute cholecystitis. 2.Hepatomegaly. 3.Pancolonic diverticulosis without definite evidence of acute diverticulitis. 4.Dense fluid in the lower abdomen and pelvis suggestive hemorrhagic ascites, with volume slightly improved compared with CT scan of the abdomen and pelvis dated 10/01/2024. It is uncertain if this may arise from the uterus, adnexae, or cecum. Surgical and/or gynecologic consultation may be warranted. 5.Advanced lumbar degenerative disc disease and facet arthropathy with multilevel significant neural foraminal stenosis. This should be further evaluated with noncontrast MRI on an outpatient basis once the patient's acute condition has resolved. No leukocytosis, normal LFT bilirubin, lipase Abdomen of ultrasound showed: 1,No evidence of acute right upper quadrant abnormalities. 2. Hepatomegaly with hepatic steatosis. 3. Cholelithiasis without evidence of acute cholecystitis. Dr. Mak on-call surgeon was consulted who evaluated her and as his opinion Most likely source of the patient's pain is inflammatory from the resolving hematoma and irritation of the right hemidiaphragm which exacerbates the pain with deep breathing Paroxysmal AFib Hypertension Hypokalemia EKG showed bifascicular block: right bundle evin block with left axis deviation Patient stopped taking warfarin since last admission on 10/01/[address] Mixon as an outpatient Continue home medication after medication reconsideration Replace hypokalemia with potassium protocol Type 2 Diabetes mellitus Hemoglobin A1c is pending On Sliding scale KATIE Continue CPAP machine at night Code Status: Full DVT prophylaxis: SCDs Analgesia/sedation: Tylenol Line/tube: Peripheral GI prophylaxis: Protonix Nutrition: npo Prognosis: Guarded Disposition: Continue monitoring with pain management Soy Rios MD Internal Medicine Resident Date of Service: Oct 06, 2024 Billing Provider: JUAN MIGUEL LAI MD Common Visit Codes: 38669-GLKEQII INP/OBS CARE (HIGH) Secondary Visit Codes: 14949-[id number] CARE PLAN 30 MINUTES SOY RIOS, GABRIEL Oct 06, 2024 15:23 JUAN MIGUEL LAI MD Oct 07, 2024 20:19
[2024-10-06] MEDS: metroNIDAZOLE-Flagyl 500mg/NS 100 ML IV SCH (15:44)
[2024-10-06] MEDS ORDERED: glucagon, human recombinant 1mg kit SUBCUT PRN (16:00)
[2024-10-06] MEDS ORDERED: DEXTROSE 15 GM of carb/4 tabs (each vial/BOTTLE has 4 tablets) PO PRN ×2 (16:00)
[2024-10-06] MEDS ORDERED: dextrose 50%-water 50ml dispensing syringe IV PRN ×2 (16:00)
[2024-10-06] MEDS: INSULIN LISPRO 100 UNIT/ML INSULN.PEN MULTI-DOSE SQ SCH (17:00)
--- NOTE | 2024-10-06 17:38 | RADIOLOGY REPORT ---
EXAM: US ULTRASOUND OF ABDOMEN CLINICAL HISTORY: RUQ pain TECHNIQUE: Grayscale and limited color flow doppler ultrasound of the right upper quadrant is perfor med. COMPARISON: CT CT ABDOMEN PELVIS W/ IV CONTRAST on DOS: 10/06/24, US ULTRASOUND OF ABDOMEN on DOS: 09/08 08/01, CT CT ABDOMEN PELVIS W/ IV CONTRAST on DOS: 10/01/24 Findings: Liver measures 17.7 cm in length with increased echotexture and contour. No evidence of focal hepatic lesions or intra- or extrahepatic ductal dilatation. Common bile duct measures 0.5 cm in diameter. N ormal hepatopedal flow noted within the portal vein. No perihepatic free fluid is noted. Gallbladder appears within normal limits with gallbladder wall thickness measuring 0.2 cm. There is s hadowing calculi and biliary sludge. No evidence of pericholecystic fluid. Sonographic Mcpherson's sign not documented. Pancreas only partially visualized due to overlying bowel gas but is otherwise unremarkable. Right kidney measures 11.0 cm with normal contours, echotexture and cortical thickness. No evidence o f hydronephrosis, calculi, cystic or solid renal lesions. Partially visualized inferior vena cava unremarkable. Impression: 1. No evidence of acute right upper quadrant abnormalities. 2. Hepatomegaly with hepatic steatosis. 3. Cholelithiasis without evidence of acute cholecystitis.
[2024-10-06 18:00] VITALS: BP 135/58; PULSE 88; RESP 17; TEMP 97.1; O2SAT 98
[2024-10-06] MEDS: K and/or MAG REPLACEMENT MC SCH (20:00)
[2024-10-06] MEDS: docusate sod 100mg capsule PO SCH (20:12)
--- NOTE | 2024-10-06 20:21 | PROGRESS NOTE ---
Progress Note Dictate Providers to CC ~ Progress Note: Patient was admitted last week with what appears to be a spontaneous right retrocolic bleed secondary to supratherapeutic INR Her anticoagulants were stopped and hemoglobin stabilized She was discharged home a few days later Returned to the emergency room earlier today with worsening right upper quadrant pain, 12/[address] scan interpreted the gallbladder as gallbladder hydrops and the patient was admitted for possible acute cholecystitis I reviewed the CT scan and the gallbladder looks exactly the same as it did a few days ago No leukocytosis Procalcitonin 0 LFTs normal The inflammatory changes are in the ascending retrocolic space and extend up to the posterior right hemidiaphragm Most likely source of the patient's pain is inflammatory from the resolving hematoma and irritation of the right hemidiaphragm which exacerbates the pain with deep breathing If admitting services truly concerned about acute cholecystitis, a HIDA scan will likely show filling gallbladder and no evidence of acute cholecystitis At this point I do not believe there are any acute surgical issues. Antibiotic Ordered?: N/A Objective Vitals Vital Signs Date Time Temp Pulse Resp B/P (MAP) Pulse Ox O2 Delivery O2 Flow Rate FiO2 10/06/24 18:30 82 10/06/24 15:22 98.4 17 133/44 (73) 97 Room Air 10/06/24 14:04 0 Lab Results: 10/06/24 0948 10/06/24 1342 Coagulation Studies Laboratory Tests Test 10/06/24 09:48 Prothrombin Time 10.5 SECONDS (9.0-12.0) INR International Normalized Ratio 1.0 INR Coagulation Comments DIEGO CAMPOS MD Oct 06, 2024 20:21
[2024-10-06] MEDS ORDERED: ketorolac trometh 15mg/ml vial 15 MG/ML ML IM ONE (20:25)
[2024-10-06] MEDS: ketorolac trometh 15mg/ml vial 15 MG/ML ML IV ONE (21:24)
[2024-10-06 22:00] VITALS: BP 143/77; PULSE 69; RESP 18; TEMP 97.7; O2SAT 96
[2024-10-07] MEDS: HYDROcodone/acetaminophen 5mg/325mg tablet PO ONE (02:36)
[2024-10-07] MEDS: metroNIDAZOLE-Flagyl 500mg/NS 100 ML IV SCH (05:31)
[2024-10-07 05:44] LABS: MEAN PLATELET VOLUME 9.1 FL (7.4-10.4); RED CELL DISTRIBUTION WIDTH 13.5 % (11.5-14.5)
[2024-10-07 06:00] VITALS: BP 119/71; PULSE 74; RESP 18; TEMP 97.1; O2SAT 92
[2024-10-07 06:04] LABS: CREATININE 0.50 MG/DL (0.40-0.90); TOTAL CARBON DIOXIDE 26.4 MMOL/L (24-32); eCRCL 97 ML/MIN; eGFR > 90 ML/MIN
[2024-10-07] MEDS: levoTHYROXINE 25mcg tablet PO SCH (07:30)
[2024-10-07] MEDS: pantoprazole 40mg Tablet.DR PO SCH (07:30)
[2024-10-07] MEDS: duloxetine 30mg CAPSULE.DR PO SCH (07:30)
[2024-10-07 08:00] VITALS: RESP 18
[2024-10-07 10:00] VITALS: BP 118/66; PULSE 77; RESP 24; TEMP 97.9; O2SAT 94
[2024-10-07] MEDS: HYDROcodone/acetaminophen 5mg/325mg tablet PO PRN (11:19)
[2024-10-07] MEDS ORDERED: bisacodyl 10mg suppository rectal RC PRN (12:50)
[2024-10-07] MEDS: magnesium hydroxide 30ml (MOM) UD suspension PO PRN (13:04)
--- NOTE | 2024-10-07 17:49 | PROGRESS NOTE- Residence ---
Progress Note - Resident Providers to CC Resident Creating Document: SOY BAEZ RES ~ Antibiotic Timeout Antibiotic Ordered?: No Subjective Patient seen and examined at the bedside, abdominal pain is controlled with pain medication. Denied any pain after eating. She reported pain exacerbated with moving and deep breaths Objective Vital Signs Date Time Temp Pulse Resp B/P (MAP) Pulse Ox O2 Delivery O2 Flow Rate FiO2 10/07/24 11:19 18 10/07/24 10:00 97.9 77 118/66 (83) 94 Room Air 10/06/24 20:00 0.0 Result Diagram: 10/07/2451210/07/24512 General: Awake and Alert, no acute distress. HEENT: Conjunctiva pink, Sclera clear, Mucus Membranes moist. Neck: Supple without masses and tenderness. Resp: Lungs clear to auscultation bilaterally. Heart: Regular Rate and rhythm, normal S1 and S2 Abdomen: Soft, mild tenderness right upper quadrant Extremities: No cyanosis,clubbing or edema. Skin: Warm and Dry. Neurological: Speech is clear, alert, and oriented x 4, no gross neurological deficits Coagulation Studies Laboratory Tests Test 10/06/24 09:48 Prothrombin Time 10.5 SECONDS (9.0-12.0) INR International Normalized Ratio 1.0 INR Coagulation Comments Plan Plan 73 years old female with history of diabetes mellitus, hypertension, AFib presented to the ED with abdominal pain Right upper quadrant abdominal pain Chronic Intra-abdominal hemorrhage subsequent hepatic flexure hematoma acute cholecystitis ruled out on 09/30/24, Patient was admitted in our hospital last week with diagnosis of spontaneous intra-abdominal bleeding following to supra therapeutic INR secondary to warfarin use. Patient managed nonsurgically and received vitamin K and FFP. She discharged home with a stable situation. CT: 1. Cholelithiasis with gallbladder hydrops which can be seen with acute cholecystitis. 2.Hepatomegaly. 3.Pancolonic diverticulosis without definite evidence of acute diverticulitis. 4.Dense fluid in the lower abdomen and pelvis suggestive hemorrhagic ascites, with volume slightly improved compared with CT scan of the abdomen and pelvis dated 10/01/2024. It is uncertain if this may arise from the uterus, adnexae, or cecum. Surgical and/or gynecologic consultation may be warranted. 5.Advanced lumbar degenerative disc disease and facet arthropathy with multilevel significant neural foraminal stenosis. This should be further evaluated with noncontrast MRI on an outpatient basis once the patient's acute condition has resolved. No leukocytosis, normal LFT bilirubin, lipase Abdomen of ultrasound showed: 1,No evidence of acute right upper quadrant abnormalities. 2. Hepatomegaly with hepatic steatosis. 3. Cholelithiasis without evidence of acute cholecystitis. 10/06/24. Dr. Mak on-call surgeon was consulted who evaluated her and as his opinion Most likely source of the patient's pain is inflammatory from the resolving hematoma and irritation of the right hemidiaphragm which exacerbates the pain with deep breathing. Drop in hemoglobin 10/07/24: Patient is stable, hemoglobin is 10.4 we will continue monitoring could be due to hemoconcentration in 1st day, patient received aggressive IV fluid Paroxysmal AFib Hypertension Hypokalemia EKG showed bifascicular block: right bundle evin block with left axis deviation Patient stopped taking warfarin since last admission on 10/01/[address] Mixon as an outpatient Continue home medication after medication reconsideration Replace hypokalemia with potassium protocol Type 2 Diabetes mellitus Hemoglobin A1c is 6.3 We will continue metformin KATIE Continue CPAP machine at night Code Status: Full DVT prophylaxis: SCDs Analgesia/sedation: Tylenol, [place] Line/tube: Peripheral GI prophylaxis: Protonix Nutrition: Regular Prognosis: Guarded Disposition: Continue monitoring with pain management Date of Service: Oct 07, 2024 Billing Provider: JUAN MIGUEL LAI MD Common Visit Codes: [id number] INP/OBS CARE(HIGH) SOY BAEZ, RES Oct 07, 2024 17:49 JUAN MIGUEL LAI MD Oct 07, 2024 20:20
[2024-10-07 18:00] VITALS: BP 118/59; PULSE 78; RESP 19; TEMP 96.8; O2SAT 96
[2024-10-07 22:00] VITALS: BP 128/62; PULSE 66; RESP 16; TEMP 97.4; O2SAT 92
[2024-10-07 23:15] VITALS: O2SAT 94
[2024-10-08 06:00] VITALS: BP 127/86; PULSE 68; RESP 18; TEMP 97.7; O2SAT 94
[2024-10-08 06:01] LABS: MEAN PLATELET VOLUME 8.7 FL (7.4-10.4); RED CELL DISTRIBUTION WIDTH 13.4 % (11.5-14.5)
[2024-10-08 06:08] LABS: CREATININE 0.52 MG/DL (0.40-0.90); TOTAL CARBON DIOXIDE 28.1 MMOL/L (24-32); eCRCL 93 ML/MIN; eGFR > 90 ML/MIN
[2024-10-08] MEDS ORDERED: HYDR-3965 PO (08:29)
[2024-10-08 10:00] VITALS: BP 138/67; PULSE 88; RESP 18; TEMP 97.2; O2SAT 95
--- NOTE | 2024-10-08 14:04 | DISCHARGE SUMMARY-Residence ---
Discharge Summary Providers to CC Resident Creating Document: SOY BAEZ, RES ~ Discharge Summary Admission Diagnosis: Abdominal pain, intra-abdominal bleeding Hospital Course DATE OF ADMISSION: 10/06/2024 DATE OF DISCHARGE: 10/08/2024 Hospital course 73 years old female with history of diabetes mellitus, hypertension, paroxysmal AFib presented to the ED with abdominal pain. Patient was admitted for following workup and treatment Intractable Right upper quadrant abdominal pain secondary to Chronic Intra-abdominal hemorrhage subsequent hepatic flexure hematoma acute cholecystitis ruled out on 09/30/24, Patient was admitted in our hospital last week with diagnosis of spontaneous intra-abdominal bleeding following to supra therapeutic INR secondary to warfarin use. Patient managed nonsurgically and received vitamin K and FFP. She discharged home with a stable situation. CT: 1. Cholelithiasis with gallbladder hydrops which can be seen with acute cholecystitis. 2.Hepatomegaly. 3.Pancolonic diverticulosis without definite evidence of acute diverticulitis. 4.Dense fluid in the lower abdomen and pelvis suggestive hemorrhagic ascites, with volume slightly improved compared with CT scan of the abdomen and pelvis dated 10/01/2024. It is uncertain if this may arise from the uterus, adnexae, or cecum. Surgical and/or gynecologic consultation may be warranted. 5.Advanced lumbar degenerative disc disease and facet arthropathy with multilevel significant neural foraminal stenosis. No leukocytosis, normal LFT bilirubin, lipase Abdomen of ultrasound showed: 1,No evidence of acute right upper quadrant abnormalities. 2. Hepatomegaly with hepatic steatosis. 3. Cholelithiasis without evidence of acute cholecystitis. 10/06/24. Dr. Mak on-call surgeon was consulted who evaluated her and as his opinion Most likely source of the patient's pain is inflammatory from the resolving hematoma and irritation of the right hemidiaphragm which exacerbates the pain with deep breathing. And there is no any acute cholecystitis Hemoglobin stable on admission 10/07/24: Patient is stable, hemoglobin is 10.4 we will continue monitoring could be due to hemoconcentration in 1st day, patient received aggressive IV fluid Paroxysmal AFib, [place] score 3, Hypertension, Hypokalemia EKG showed bifascicular block: right bundle evin block with left axis deviation Patient stopped taking warfarin since last admission on 10/01/[address] Mixon as an outpatient. Dr. Bonilla was consulted regarding restart of warfarin, who did not recommend to start Warfarin Type 2 Diabetes mellitus Hemoglobin A1c is 6.3 We will continue metformin KATIE: Continue CPAP machine at night Laboratory Tests Test 10/06/24 16:24 10/06/24 17:30 10/06/24 20:11 10/07/24 05:13 Hemoglobin A1c 6.3 % Glucometer 117 mg/dl 109 mg/dl White Blood Count 6.3 X10'3 Red Blood Count 3.20 X10'6 Hemoglobin 10.4 g/dl Hematocrit 30.7 % Mean Corpuscular Volume 96.0 FL Mean Corpuscular Hemoglobin 32.4 PG Mean Corpuscular Hemoglobin Concent 33.8 g/dL Red Cell Distribution Width 13.5 % Platelet Count 200 X10'3 Mean Platelet Volume 9.1 FL Neutrophils (%) (Auto) 67.0 % Lymphocytes (%) (Auto) 18.0 % Monocytes (%) (Auto) 11.9 % Eosinophils (%) (Auto) 2.6 % Basophils (%) (Auto) 0.5 % Neutrophils # (Auto) 4.2 X10'3 Lymphocytes # (Auto) 1.1 X10'3 Monocytes # (Auto) 0.7 X10'3 Eosinophils # (Auto) 0.2 X10'3 Basophils # (Auto) 0.0 X10'3 CBC Comment Sodium Level 139 MMOL/L Potassium Level 3.8 MMOL/L Chloride Level 105 MMOL/L Carbon Dioxide Level 26.4 MMOL/L Anion Gap 8 Blood Urea Nitrogen 7 MG/DL Creatinine 0.50 MG/DL Estimated GFR/1.73 m2 > 90 ML/MIN BUN/Creatinine Ratio 14.0 Glucose Level 118 MG/DL Calcium Level 8.5 MG/DL Magnesium Level 1.7 MG/DL Total Bilirubin 0.7 MG/DL Aspartate Amino Transf (AST/SGOT) 15 U/L Alanine Aminotransferase (ALT/SGPT) 14 U/L Alkaline Phosphatase 57 IU/L Total Protein 6.5 G/DL Albumin 2.9 G/DL Globulin 3.6 G/DL Albumin/Globulin Ratio 0.8 Chemistry Comments Test 10/07/24 07:00 10/07/24 11:33 10/07/24 16:52 10/07/24 21:08 Glucometer 111 mg/dl 97 mg/dl 90 mg/dl 159 mg/dl Test 10/08/24 05:33 10/08/24 07:30 White Blood Count 5.7 X10'3 Red Blood Count 3.08 X10'6 Hemoglobin 10.0 g/dl Hematocrit 29.4 % Mean Corpuscular Volume 95.4 FL Mean Corpuscular Hemoglobin 32.6 PG Mean Corpuscular Hemoglobin Concent 34.1 g/dL Red Cell Distribution Width 13.4 % Platelet Count 218 X10'3 Mean Platelet Volume 8.7 FL Neutrophils (%) (Auto) 65.8 % Lymphocytes (%) (Auto) 18.7 % Monocytes (%) (Auto) 12.5 % Eosinophils (%) (Auto) 2.5 % Basophils (%) (Auto) 0.5 % Neutrophils # (Auto) 3.8 X10'3 Lymphocytes # (Auto) 1.1 X10'3 Monocytes # (Auto) 0.7 X10'3 Eosinophils # (Auto) 0.1 X10'3 Basophils # (Auto) 0.0 X10'3 CBC Comment Sodium Level 136 MMOL/L Potassium Level 3.7 MMOL/L Chloride Level 103 MMOL/L Carbon Dioxide Level 28.1 MMOL/L Anion Gap 5 Blood Urea Nitrogen 6 MG/DL Creatinine 0.52 MG/DL Estimated GFR/1.73 m2 > 90 ML/MIN BUN/Creatinine Ratio 11.5 Glucose Level 127 MG/DL Calcium Level 8.7 MG/DL Magnesium Level 1.9 MG/DL Total Bilirubin 0.6 MG/DL Aspartate Amino Transf (AST/SGOT) 13 U/L Alanine Aminotransferase (ALT/SGPT) 13 U/L Alkaline Phosphatase 57 IU/L Total Protein 6.4 G/DL Albumin 2.8 G/DL Globulin 3.6 G/DL Albumin/Globulin Ratio 0.8 Chemistry Comments Glucometer 129 mg/dl Physical exam on discharge day : General: Awake and Alert, no acute distress. HEENT: Conjunctiva pink, Sclera clear, Mucus Membranes moist. Neck: Supple without masses and tenderness. Resp: Lungs clear to auscultation bilaterally. Heart: Regular Rate and rhythm, normal S1 and S2 Abdomen: Soft, mild tenderness right upper quadrant Extremities: No cyanosis,clubbing or edema. Skin: Warm and Dry. Neurological: Speech is clear, alert, and oriented x 4, no gross neurological deficits Patient discharged home with following instruction; please follow your pcp. Please follow up with Dr Reece for monitoring and any recommendation of restarted Warfarin. Follow up with Dr Mixon. return to Ed if you notice any worsening symptoms. Discharge Diagnosis\Comment: Intractable abdominal pain secondary to adverse effect of Eliquis with chronic intra-abdominal bleeding/hepatic flexure hematoma Cholelithiasis Paroxysmal AFib Type 2 diabetes mellitus KATIE Obesity, BMI 40.6 Operations\Procedures: none Consultants: Dr Mak, Dr Reece Complications: none Condition on DC: Stable New Medications: Hydrocodone Bit/Acetaminophen 5/325 MG ([place] 5/325 MG) 5 Mg/325 Mg Tablet 1 TAB PO Q6H PRN for pain, #20 TAB Continued Medications: Acetaminophen (Tylenol) 650 Mg Supp.rect 1 SUPP RC Q6H PRN PRN for pain or fever for 1 Day, #4 SUPP Cyanocobalamin (Vitamin B-12) (Cyanocobalamin Injection) 1,000 Mcg/Ml Vial 1 ML IM Q30D for 30 Days, #1 ML 0 Refills Duloxetine HCl (Duloxetine HCl) 30 Mg Capsule.dr 3 CAP PO DAILY Furosemide* (Lasix*) 20 Mg Tablet 1 TAB PO DAILY for 30 Days, #30 TAB Levothyroxine Sodium (Levothyroxine Sodium) 75 Mcg Tablet 1 TABLET PO DAILY, #30 TABLET 5 Refills Metformin Hcl* (Metformin ER*) 500 Mg Tab.sr.24h 500 MG PO BID Pantoprazole Sodium (Pantoprazole Sodium) 40 Mg Tablet. 40 MG PO BKF for 30 Days, #30 TAB.SR Rosuvastatin Calcium (Rosuvastatin Calcium) 20 Mg Tablet 1 TAB PO HS Terbinafine Hcl (Terbinafine Hcl) 250 Mg Tablet 1 TAB PO DAILY Valsartan* (Diovan*) 80 Mg Tablet 1 TAB PO DAILY, TAB Discharge Summary: See hospital course *Problems/Diagnosis: (1) Morbid obesity Total Time Spent on D/C: > 30 Minutes Date of Service: Oct 08, 2024 Billing Provider: JUAN MIGUEL LAI MD Common Visit Codes: [id number] DISCH DAY >30min SOY BAEZ, GABRIEL Oct 08, 2024 13:50 JUAN MIGUEL LAI MD Oct 09, 2024 09:04
== END 2024-10-08 13:17 | disposition home health service (06) | DRG 445 ==
LOC: ER 09:12 → ED HOLD 13:05 → ORTHO 4S 15:40
PROVIDERS: ADMIT Internal Medicine; ATTEND Internal Medicine
PROC: BW211ZZ Computerized Tomography (CT Scan) of Abdomen and Pelvis using Low Osmolar Contrast (ICD-10-PCS; principal; 2024-10-06)
DX: S36.13XA Injury of bile duct, initial encounter (principal); K82.1 Hydrops of gallbladder; Z68.41 Body mass index [BMI] 40.0-44.9, adult; K76.89 Other specified diseases of liver; E66.9 Obesity, unspecified; I48.0 Paroxysmal atrial fibrillation; K80.20 Calculus of gallbladder without cholecystitis without obstruction; K57.30 Diverticulosis of large intestine without perforation or abscess without bleeding; E87.6 Hypokalemia; X58.XXXA Exposure to other specified factors, initial encounter; E11.9 Type 2 diabetes mellitus without complications; Z79.01 Long term (current) use of anticoagulants; Y93.89 Activity, other specified; Y92.89 Other specified places as the place of occurrence of the external cause; Y99.8 Other external cause status
CPT/HCPCS: 36415; 74177; 76700; 80048; 80053; 81001; 82248; 82948; 83036; 83605; 83690; 83735; 84145; 84484; 85025; 85610; 86885; 86900; 86901; 87040; 87081; 93005; 94760; 96365; 96366; 99285; G0378; J0696; J1815; J1885; J2470; J3490; J7030; Q9967

== ENCOUNTER 2025-01-20 09:04 | Day surgery (SDC) | payer MEDICARE, OTHER ==
[~2025-01-20] VITALS: Ht 167.6 cm; Wt 111.8 kg
[~2025-01-20 09:04] MED LIST changes: +ACET-2971 PO; +ALBU8HFA INH; +APIX5TAB3 PO; +ASCO10004 PO; +COLLAGEN; +FERR-119 PO; +FURO-150 PO; +MOME13HF12 INH; +PANT-47 PO; -PANT40TA54 PO; -TERB250T89 PO; +TIRZ2.5P SQ; +fentaNYL/PF 50MCG/1 ML 2ML syringe ONE; +midazolam 1 mg/ML 2ml injection ONE
[2025-01-20] MEDS ORDERED: OMEP20CA16 PO (09:36)
[2025-01-20] MEDS ORDERED: normal saline 1000ml 1,000 ML IV SCH (09:45)
[2025-01-20 09:52] LABS: MEAN PLATELET VOLUME 8.8 FL (7.4-10.4); RED CELL DISTRIBUTION WIDTH 13.9 % (11.5-14.5)
[2025-01-20 09:54] VITALS: BP 148/78; PULSE 76; RESP 14; TEMP 98.4; O2SAT 97
[2025-01-20 10:13] LABS: APTT 28 SECONDS (22-32); INR 1.0 INR
[2025-01-20 10:14] LABS: CREATININE 0.60 MG/DL (0.40-0.90); TOTAL CARBON DIOXIDE 33.0 MMOL/L (24-32); eCRCL 79 ML/MIN; eGFR > 90 ML/MIN
[2025-01-20] MEDS ORDERED: midazolam 1 mg/ML 2ml injection ONE (10:38)
[2025-01-20 11:07] VITALS: BP 133/69; PULSE 67; RESP 16; O2SAT 91
[2025-01-20] MEDS ORDERED: CLOP75TA34 PO (11:12)
[2025-01-20] MEDS ORDERED: ASPI-1265 PO (11:12)
[2025-01-20 11:15] VITALS: BP 142/64; PULSE 65; RESP 16; O2SAT 91
[2025-01-20 11:30] VITALS: BP 138/62; PULSE 62; RESP 16; O2SAT 94
[2025-01-20 11:40] VITALS: BP 136/62; PULSE 62; RESP 16; O2SAT 94
--- NOTE | 2025-01-20 17:50 | CARDIOLOGY REPORT ---
APPROVED REPORT EXAM: Focused, limited transesophageal echocardiogram with color flow Doppler. Patient Location: [facility] Blood Pressure: 138/67 mmHg Heart Rate: 83 bpm Rhythm: SINUS Indications POST WATCHMAN FLX DONNA CLOSURE DEVICE IMPLANTATION FOLLOW UP EVALUATE DEVICE FOR THROMBUS, POSITION, AND SEAL 31mm WATCHMAN FLX DONNA CLOSURE DEVICE SADI PROBE PASSED BY: Chidi MIXON MD Radio Frequency Technician: Chidi MIXON MD / Interventionalist: Chidi Mixon MD / Device rep: [facility] [place] Previous echo: 12/09/24 [facility] RL/SS EF65%; trivPE LEFT VENTRICLE Normal LV size and wall thickness. Overall systolic function is normal. LVEF is 65-70%. ATRIA LA is severely dilated. Intact interatrial septum without shunt detected s/p transseptal puncture. Left upper pulmonary vein identified. Successfully occluded left atrial appendage with well visualized Watchman device well positioned without thrombus. No residual flow detected around device in all view s. [place] Aorta is normal in size. PERICARDIUM Normal pericardium. No effusion. CONCLUSION Normal LV size and wall thickness. Overall systolic function is normal. LVEF is 65-70%. LA is severely dilated. Intact interatrial septum without shunt detected s/p transseptal puncture. Left upper pulmonary vein identified. Successfully occluded left atrial appendage with well visualized Watchman device well positioned without thrombus. No residual flow detected around device in all views. Normal pericardium. No effusion. Conclusion Normal LV size and wall thickness. Overall systolic function is normal. LVEF is 65-70%. LA is severely dilated. Intact interatrial septum without shunt detected s/p transseptal puncture. Left upper pulmonary vein identified. Successfully occluded left atrial appendage with well visualized Watchman device well positioned without thrombus. No residual flow detected around device in all views. Normal pericardium. No effusion.
== END 2025-01-20 11:40 | disposition home or self-care (01) ==
LOC: SSTAY O 09:04
PROVIDERS: ATTEND Student in an Organized Health Care Education/Training Program
DX: I48.0 Paroxysmal atrial fibrillation (principal); I34.81 Nonrheumatic mitral (valve) annulus calcification; E11.9 Type 2 diabetes mellitus without complications; E03.9 Hypothyroidism, unspecified; E66.9 Obesity, unspecified; E78.5 Hyperlipidemia, unspecified; G47.33 Obstructive sleep apnea (adult) (pediatric); I11.9 Hypertensive heart disease without heart failure; K66.1 Hemoperitoneum; Z95.818 Presence of other cardiac implants and grafts; Z79.01 Long term (current) use of anticoagulants
CPT/HCPCS: 36415; 80048; 82948; 85025; 85610; 85730; 93312; 93325; J2250; J3010; J7030